=== PATIENT | female | born 1965 | race Caucasian/White ===

== ENCOUNTER 2021-07-24 22:15 | Emergency (ER) | payer OTHER ==
--- NOTE | 2021-07-24 23:00 | ER ---
Nurse's Notes [facility] Name: Sonam Pepe Age: 56 yrs Sex: Female : 1965 Arrival Date: 07/24/2021 Time: 22:20 Bed 11 Private MD: Diagnosis: Puncture wound without foreign body, left thigh, initial encounter-Multiple, from peri Presentation: 07/24 22:45 Chief complaint: Patient states: I was attack by my rooster while trying to feed the jb4 chickens. It left 4 puncture wounds on my left upper thigh. Coronavirus screen: At this time, the client does not indicate any symptoms associated with coronavirus-19. Ebola Screen: No symptoms or risks identified at this time. Initial Sepsis Screen: Does the patient meet any 2 criteria? No. Patient's initial sepsis screen is negative. Does the patient have a suspected source of infection? No. Patient's initial sepsis screen is negative. Risk Assessment: Do you want to hurt yourself or someone else? Patient reports no desire to harm self or others. Onset of symptoms was July 24, 2021. Transition of care: patient was not received from another setting of care. 22:45 Method Of Arrival: Ambulatory jb4 22:45 Acuity: SHAINA 4 jb4 Historical: - Allergies: 22:47 No Known Allergies; jb4 - Home Meds: 22:47 None [Active]; jb4 - PMHx: 22:47 Sleep apnea; narcolepsy; jb4 - PSHx: 22:47 1 ovari removed; jb4 - Immunization history:: Adult Immunizations up to date, Last tetanus immunization: > 10 years ago. - Social history:: Smoking status: Patient reports the use of cigarette tobacco products, smokes one-half pack cigarettes per day, Patient/guardian denies using alcohol, street drugs. - Family history:: not pertinent. - Hospitalizations: : No recent hospitalization is reported. Screenin:53 Abuse screen: Denies threats or abuse. Nutritional screening: No deficits noted. jb4 Tuberculosis screening: No symptoms or risk factors identified. Fall Risk None identified. Assessment: 22:51 General: Appears in no apparent distress. uncomfortable, Behavior is calm, cooperative, jb4 appropriate for age. Pain: Complains of pain in lateral aspect of left thigh and left quadriceps Pain does not radiate. Pain currently is 8 out of 10 on a pain scale. Neuro: Level of Consciousness is awake, alert, obeys commands, Oriented to person, place, time, situation. Cardiovascular: Patient's skin is warm and dry. Respiratory: Airway is patent Respiratory effort is even, unlabored, Respiratory pattern is regular, symmetrical. GI: No signs and/or symptoms were reported involving the gastrointestinal system. : No signs and/or symptoms were reported regarding the genitourinary system. EENT: No signs and/or symptoms were reported regarding the EENT system. Derm: Skin puncture wounds to left thigh Skin is pink, warm \T\ dry. Musculoskeletal: Circulation, motion, and sensation intact. Range of motion: intact in all extremities. Injury Description: Puncture sustained to lateral aspect of left thigh and left quadriceps is superficial. Vital Signs: 22:45 BP 137 / 74; Pulse 76; Resp 16; Temp 98.9(O); Pulse Ox 97% on R/A; Weight 66.68 kg (R); jb4 Height 5 ft. 4 in. (162.56 cm) (R); Pain 8/10; 22:45 Body Mass Index 25.23 (66.68 kg, 162.56 cm) jb4 ED Course: 22:20 Patient arrived in ED. ja2 22:47 Triage completed. jb4 22:47 Arm band placed on right wrist. jb4 22:48 Erasmo Gutierrez MD is Attending Physician. rn 22:53 Patient has correct armband on for positive identification. Bed in low position. Call jb4 light in reach. Side rails up X 1. 07/25 00:00 Wound care: to laceration located on lateral aspect of left thigh was cleaned with soap tw5 and water, dressed with Neosporin, band aid. Administered Medications: 07/24 23:49 Drug: Tetanus-Diphtheria Toxoid Adult 0.5 ml {Inspector Process: Taplet. Exp: tw06/19/2023. Lot #: [id number]. } Route: IM; Site: right deltoid; 07/25 00:02 Follow up: Response: No adverse reaction 00:00 Drug: Doxycycline 100 mg Route: PO; 00:02 Follow up: Response: No adverse reaction 00:00 Drug: HYDROcodone-acetaminophen 5 mg-325 mg 1 tabs Route: PO; 00:02 Follow up: Response: No adverse reaction Outcome: 07/24 23:00 Discharge ordered by . rn 07/25 00:15 Patient left the ED. jb4 Signatures: Erasmo Gutierrez MD MD rn Bryson, James, RN RN jb4 Anisa Terrazas Tiffany tw5
--- NOTE | 2021-07-24 23:01 | EDPHYS ---
Physician Documentation [facility] [place], [place] Name: Sonam Pepe Age: 56 yrs Sex: Female : 1965 Arrival Date: 07/24/2021 Time: 22:20 Bed 11 Private MD: ED Physician Erasmo Gutierrez HPI: 07/24 22:55 This 56 yrs old Female presents to ER via Ambulatory with complaints of Animal Bite, rn Animal Attack. 22:55 The patient was bitten on the left leg. Onset: The symptoms/episode began/occurred this rn morning. Animal information: The animal was reported to appear healthy. Secondary to the bite the patient reports multiple puncture wounds, that are superficial. Severity of symptoms: At their worst the symptoms were mild, in the emergency department the symptoms are unchanged. The patient has not experienced similar symptoms in the past. The patient has not recently seen a physician. Reports attacked by her own rooster this AM, tetanus not up to date, 4 puncture wounds, no fever, father told her to come in for evaluation.. Historical: - Allergies: 22:47 No Known Allergies; jb4 - Home Meds: 22:47 None [Active]; jb4 - PMHx: 22:47 Sleep apnea; narcolepsy; jb4 - PSHx: 22:47 1 ovari removed; jb4 - Immunization history:: Adult Immunizations up to date, Last tetanus immunization: > 10 years ago. - Social history:: Smoking status: Patient reports the use of cigarette tobacco products, smokes one-half pack cigarettes per day, Patient/guardian denies using alcohol, street drugs. - Family history:: not pertinent. - Hospitalizations: : No recent hospitalization is reported. ROS: 22:55 Constitutional: Negative for fever, chills, and weight loss, MS/Extremity: + injury and rn puncture wounds to left thigh Neuro: Negative for weakness, numbness, tingling Exam: 22:55 Constitutional: This is a well developed, well nourished patient who is awake, alert, rn and in no acute distress. Cardiovascular: Regular rate and rhythm. No pulse deficits. MS/ Extremity: Pulses equal, no cyanosis. Neurovascular intact. Full, normal range of motion. Equal circumference. 4 subcentimeter puncture wounds to left proximal thigh, no active bleeding, no erythema or warmth. Vital Signs: 22:45 BP 137 / 74; Pulse 76; Resp 16; Temp 98.9(O); Pulse Ox 97% on R/A; Weight 66.68 kg (R); jb4 Height 5 ft. 4 in. (162.56 cm) (R); Pain 8/10; 22:45 Body Mass Index 25.23 (66.68 kg, 162.56 cm) jb4 MDM: 22:48 Patient medically screened. rn 22:55 Differential diagnosis: superficial puncture wounds. Data reviewed: vital signs, nurses rn notes, and as a result, I will discharge patient. Counseling: I had a detailed discussion with the patient and/or guardian regarding: the historical points, exam findings, and any diagnostic results supporting the discharge/admit diagnosis, the need for outpatient follow up, to return to the emergency department if symptoms worsen or persist or if there are any questions or concerns that arise at home. Special discussion: I discussed with the patient/guardian in detail that at this point there is no indication for admission to the hospital. It is understood, however, that if the symptoms persist or worsen the patient needs to return immediately for re-evaluation. 07/24 22:55 Order name: Wound Care; Complete Time: 00:00 rn Administered Medications: 23:49 Drug: Tetanus-Diphtheria Toxoid Adult 0.5 ml {Piggery Worker: Embedster. Exp: tw5 06/19/2023. Lot #: [id number]. } Route: IM; Site: right deltoid; 07/25 00:02 Follow up: Response: No adverse reaction 00:00 Drug: Doxycycline 100 mg Route: PO; 00:02 Follow up: Response: No adverse reaction 00:00 Drug: HYDROcodone-acetaminophen 5 mg-325 mg 1 tabs Route: PO; 00:02 Follow up: Response: No adverse reaction Disposition Summary: 07/24/21 23:00 Discharge Ordered Location: Home rn Problem: new rn Symptoms: have improved rn Condition: Stable rn Diagnosis - Puncture wound without foreign body, left thigh, initial encounter - Multiple, from libby whitt Followup: rn - With: Private Physician - When: As needed - Reason: Recheck today's complaints, Re-evaluation by your physician Discharge Instructions: - Discharge Summary Sheet rn - Puncture Wound rn Forms: - Medication Reconciliation Form rn - Thank You Letter rn - Antibiotic attorney - Prescription Opioid Use rn Prescriptions: - Tramadol 50 mg Oral Tablet - take 1 tablet by ORAL route every 8 hours as needed; 12 tablet; Refills: 0, rn Product Selection Permitted - Doxycycline Monohydrate 100 mg Oral Tablet - take 1 tablet by ORAL route every 12 hours for 10 days; 20 tablet; Refills: 0, rn Product Selection Permitted Signatures: Erasmo Gutierrez MD MD rn Bryson, James, RN RN [address]Air[address] [facility]
[2021-07-24] MEDS ORDERED: DOXYCYCLINE 100 MG CAP PO ONE (23:50)
[2021-07-24] MEDS ORDERED: HYDROCODONE/APAP 5/325 MG TAB ONE (23:51)
[2021-07-24] MEDS ORDERED: TETANUS & DIPHTHERIA TOX,ADULT 0.5 ML VIAL ONE (23:53)
[2021-07-25 00:42] VITALS: BP 137/74; TEMP 98.9; O2SAT 97
== END 2021-07-25 00:15 | disposition home or self-care (01) ==
LOC: ER 22:15
DX: S71.132A Puncture wound without foreign body, left thigh, initial encounter (principal); W61.32XA Struck by chicken, initial encounter; Z23 Encounter for immunization
CPT/HCPCS: 90471; 90714; 99283